=== PATIENT | male | born 1960 | race Asian ===

== ENCOUNTER 2020-05-27 06:33 | Day surgery (SDC) | payer BC, OTHER, SELFPAY ==
[~2020-05-27] VITALS: Ht 172.7 cm; Wt 73.5 kg
[~2020-05-27 06:33] MED LIST: APAP/HYDROCODON1 T13 PO; ASPIR 8181 MG PO; BG MC; FLE10 PO; LISINOPRIL40 MG PO; LOVASTATIN40 MG PO; METFORMIN ER500 M1 PO; ULORIC40 M1 PO; [UNRECOGNIZED DRUG - OTHER] PO
[2020-05-27 07:35] VITALS: BP 117/79
[2020-05-27 10:07] VITALS: BP 148/101
== END 2020-05-27 10:10 | disposition home or self-care (01) ==
LOC: DS 06:33 → OR 09:00 → DS 09:00 → OR 09:15 → DS 10:10
PROVIDERS: ATTEND Internal Medicine
DX: Z12.11 Encounter for screening for malignant neoplasm of colon (principal); K63.5 Polyp of colon; Z11.59 Encounter for screening for other viral diseases; E11.22 Type 2 diabetes mellitus with diabetic chronic kidney disease; I12.0 Hypertensive chronic kidney disease with stage 5 chronic kidney disease or end stage renal disease; N18.6 End stage renal disease; M10.9 Gout, unspecified; E78.5 Hyperlipidemia, unspecified; Z99.2 Dependence on renal dialysis; Z83.3 Family history of diabetes mellitus; Z82.49 Family history of ischemic heart disease and other diseases of the circulatory system
CPT/HCPCS: 45378; J1200; J1610; J2250; J2310; J3010; J3490; U0003-CS